=== PATIENT | female | born 1990 | race Caucasian/White ===

== ENCOUNTER 2022-12-27 11:53 | Inpatient (IN) | payer OTHER ==
[~2022-12-27] VITALS: Ht 152.4 cm; Wt 66.2 kg
[2022-12-27] MEDS ORDERED: CARBOPROST 250 MCG/ML AMP IM PRN (12:10)
[2022-12-27] MEDS ORDERED: METHYLERGONOVINE 0.2 MG/ML AMP IM PRN ×2 (12:10→20:45)
[2022-12-27] MEDS ORDERED: ONDANSETRON 4 MG/2 ML VIAL IVP PRN (12:10)
[2022-12-27] MEDS ORDERED: NALBUPHINE 10 MG/ML AMP IM SCH (12:10)
[2022-12-27] MEDS ORDERED: OXYTOCIN 20 UNITS in LACTATED RINGERS 1,000 ML IV SCH (12:10)
[2022-12-27] MEDS ORDERED: LACTATED RINGERS 500 ML IV SCH (12:10)
[2022-12-27 12:19] VITALS: BP 117/68; PULSE 82; RESP 18; TEMP 97.9
[2022-12-27] MEDS: LACTATED RINGERS 1,000 ML IV SCH ×4 (12:57→18:33)
[2022-12-27 13:05] LABS: BASOPHILS % (AUTO) 0.4 % (0.0-2.0); EOSINOPHILS # (AUTO) 0.1 K/uL (0-0.4); EOSINOPHILS % (AUTO) 1.2 % (0.0-4.0); HEMATOCRIT 37.5 % (36-48); HEMOGLOBIN 12.5 g/dL (12.0-16.0); LYMPHOCYTES # (AUTO) 1.8 K/uL (2.5-16.5); LYMPHOCYTES % (AUTO) 19.4 % (20.5-51.1); MEAN CORPUSCULAR HEMOGLOBIN 29 pg (27-31); MEAN CORPUSCULAR HGB CONC 33 g/dL (33-37); MEAN CORPUSCULAR VOLUME 87.9 fL (80-94); MONOCYTES # (AUTO) 0.6 K/uL (0.8-1.0); MONOCYTES % (AUTO) 6.4 % (1.7-9.3); NEUTROPHILS # (AUTO) 6.8 K/uL (1.8-7.7); NEUTROPHILS % (AUTO) 72.6 % (42.2-75.2); PLATELET COUNT (AUTO) 285 K/uL (140-450); RED BLOOD CELL COUNT(AUTO) 4.27 MIL/uL (4.20-5.40); RED CELL DISTRIBUTION WIDTH 13.8 % (11.6-13.7); WHITE BLOOD COUNT (AUTO) 9.3 K/uL (4.8-10.8)
[2022-12-27] MEDS ORDERED: MISOPROSTOL 25 MCG TAB ONE (13:09)
[2022-12-27 13:19] LABS: INR 0.87 (0.8-1.2); PARTIAL THROMBOPLASTIN TIME 26.4 secs (22-35.6); PROTHROMBIN TIME 9.2 secs (10.8-13.4)
[2022-12-27 13:23] LABS: APPEARANCE,URINE CLEAR (CLEAR); BILIRUBIN,URINE NEGATIVE (NEGATIVE); BLOOD, URINE 1+ (NEGATIVE); COLOR,URINE YELLOW (YELLOW); LEUKOCYTE ESTERASE ,URINE NEGATIVE (NEGATIVE); NITRITE, URINE NEGATIVE (NEGATIVE); PROTEIN,URINE NEGATIVE (NEGATIVE); UGLUCOSE NEGATIVE (NEGATIVE); UROBILINOGEN,URINE 0.2 EU/dL (0.2 - 1)
[2022-12-27 13:27] LABS: ALBUMIN 2.7 g/dL (3.4-5.0); ANION GAP 14.3 (8-16); CARBON DIOXIDE 23.3 mmol/L (21-32); CREATININE 0.6 mg/dL (0.6-1.3); POTASSIUM 3.6 mmol/L (3.5-5.1); TOTAL BILIRUBIN 1.2 mg/dL (0.0-1.0); TOTAL PROTEIN, SERUM 7.1 g/dL (6.4-8.2)
[2022-12-27 13:34] LABS: BACTERIA,URINE FEW /HPF (None Seen); SQUAMOUS EPITHELIAL CELL,UR 4-10 (MOD) /LPF (0-3 (FEW)); WBC,URINE 0-5 /HPF (0-5)
[2022-12-27] MEDS ORDERED: PRETAB PO (14:51)
[2022-12-27] MEDS ORDERED: FERR-147 PO (14:51)
[2022-12-27] MEDS ORDERED: NALBUPHINE 10 MG/ML AMP IVP SCH (15:15)
[2022-12-27] MEDS ORDERED: NALBUPHINE 10 MG/ML AMP ONE (15:18)
[2022-12-27] MEDS ORDERED: MISOPROSTOL 25 MCG TAB VG SCH (16:00)
[2022-12-27] MEDS ORDERED: ROPIVACAINE 0.2%/NS PREMIX 200 ML EPI ONE (16:32)
[2022-12-27] MEDS ORDERED: OXYTOCIN 20 UNITS/LR PREMIX 1,000 ML IV ONE (19:13)
[2022-12-27] MEDS ORDERED: TEMAZEPAM 15 MG CAP PO PRN (20:45)
[2022-12-27] MEDS ORDERED: BENZOCAINE/MENTHOL 20%-0.5% 60 GM CAN TP PRN (20:45)
[2022-12-27] MEDS ORDERED: METHYLERGONOVINE 0.2 MG TAB PO PRN (20:45)
[2022-12-27] MEDS ORDERED: OXYTOCIN 10 UNITS/ML VIAL IM PRN (20:45)
[2022-12-27] MEDS ORDERED: oxyCODONE/APAP 5/325 MG 1 TAB TAB PO PRN ×2 (20:45)
[2022-12-27] MEDS ORDERED: DOCUSATE SOD/SENNA 50/8.6 MG 1 TAB PO SCH (21:00)
[2022-12-27] MEDS: IBUPROFEN 800 MG TAB PO PRN (22:32)
[2022-12-28 07:03] LABS: HEMATOCRIT 35.8 % (36-48); HEMOGLOBIN 11.7 g/dL (12.0-16.0)
[2022-12-28] MEDS: IBUPROFEN 800 MG TAB PO PRN ×2 (08:03→18:10)
[2022-12-28] MEDS ORDERED: DOCUSATE SOD/SENNA 50/8.6 MG 1 TAB PO SCH (21:00)
== END 2022-12-28 22:30 | disposition home or self-care (01) | DRG 560 ==
LOC: MLD 11:53 → MFCC 12-28 00:45
PROVIDERS: ADMIT Obstetrics & Gynecology; ATTEND Obstetrics & Gynecology
PROC: 10E0XZZ Delivery of Products of Conception, External Approach (ICD-10-PCS; principal; 2022-12-27)
DX: O80 Encounter for full-term uncomplicated delivery (principal); Z37.0 Single live birth; Z20.822 Contact with and (suspected) exposure to COVID-19; Z3A.39 39 weeks gestation of pregnancy
CPT/HCPCS: 36415; 59200; 59409; 80053; 81001; 85018; 85025; 85610; 85730; 86592; 86886; 86900; 86901; J2300; J2405; J2590; J2795